=== PATIENT | male | born 1995 | race Caucasian/White ===

== ENCOUNTER 2022-09-03 19:55 | Emergency (ER) | payer OTHER ==
[~2022-09-03] VITALS: Ht 188 cm; Wt 95.3 kg
[2022-09-03 19:55] VITALS: BP 124/76
--- NOTE | 2022-09-03 19:55 | NUR ---
TO CHAIR C, BIB [facility] FOR PREBOOK
--- NOTE | 2022-09-03 20:42 | NUR ---
PATIENT BIB [facility] [employer] [facility]. PATIENT EXAMINED BY DR. ZAMORA. PATIENT MEDICALLY CLEARED AND RELEASED IN CUSTODY IN STABLE CONDITION. ORIGINAL PRE-BOOK FORM GIVEN TO OFFICER JAROD, #[id number].
== END 2022-09-03 20:42 ==
LOC: MED 19:55
DX: Z02.89 Encounter for other administrative examinations (principal); V89.2XXA Person injured in unspecified motor-vehicle accident, traffic, initial encounter; Y93.89 Activity, other specified; Y92.89 Other specified places as the place of occurrence of the external cause; Y99.8 Other external cause status
CPT/HCPCS: 99283